=== PATIENT | female | born 1970 | race Two or more races ===

== ENCOUNTER 2018-12-28 08:09 | Outpatient (CLI) | payer OTHER | END 2018-12-28 08:15 | disposition home or self-care (01) | LOC: SONOGRAMA 08:09 | DX: E04.2 Nontoxic multinodular goiter (principal) ==

== ENCOUNTER 2019-11-17 13:49 | Emergency (ER) | payer OTHER ==
[~2019-11-17] VITALS: Ht 162.6 cm; Wt 87.5 kg
== END 2019-11-17 19:27 | disposition home or self-care (01) ==
LOC: ER 13:49
DX: N93.8 Other specified abnormal uterine and vaginal bleeding (principal); N39.0 Urinary tract infection, site not specified; D25.1 Intramural leiomyoma of uterus

== ENCOUNTER 2025-04-03 06:00 | Day surgery (SDC) | payer OTHER ==
[2025-03-27 11:52] VITALS: BP 124/84
[~2025-04-03] VITALS: Ht 160 cm; Wt 85.7 kg
[~2025-04-03 06:00] MED LIST: SYNTHROID50 MCG PO
[2025-04-03] MEDS ORDERED: IBU600 MG PO (10:04)
== END 2025-04-03 16:00 | disposition home or self-care (01) ==
LOC: CIR.AMB 06:00
PROVIDERS: ATTEND Obstetrics & Gynecology Gynecology
DX: N85.02 Endometrial intraepithelial neoplasia [EIN] (principal); N95.0 Postmenopausal bleeding